=== PATIENT | female | born 1980 | race Caucasian/White ===

== ENCOUNTER → 2017-08-24 | Outpatient (CLI) | payer OTHER | LOC: HPND 07:56 | PROVIDERS: ATTEND Obstetrics & Gynecology | DX: O09.521 Supervision of elderly multigravida, first trimester (principal); O30.041 Twin pregnancy, dichorionic/diamniotic, first trimester; O26.841 Uterine size-date discrepancy, first trimester | CPT/HCPCS: 76801; 76802 ==

== ENCOUNTER → 2017-10-06 | Outpatient (CLI) | payer OTHER | LOC: HPND 08:58 | PROVIDERS: ATTEND Obstetrics & Gynecology | DX: O09.512 Supervision of elderly primigravida, second trimester (principal); O30.042 Twin pregnancy, dichorionic/diamniotic, second trimester | CPT/HCPCS: 76811; 76812; 76817 ==

== ENCOUNTER → 2017-11-03 | Outpatient (CLI) | payer OTHER | LOC: HPND 08:04 | PROVIDERS: ATTEND Obstetrics & Gynecology | DX: O30.042 Twin pregnancy, dichorionic/diamniotic, second trimester (principal) | CPT/HCPCS: 76816; 76817 ==

== ENCOUNTER → 2017-11-15 | Outpatient (CLI) | payer OTHER | LOC: HPND 08:21 | PROVIDERS: ATTEND Obstetrics & Gynecology | DX: O09.522 Supervision of elderly multigravida, second trimester (principal); O30.042 Twin pregnancy, dichorionic/diamniotic, second trimester | CPT/HCPCS: 76815; 76817 ==

== ENCOUNTER → 2017-12-02 | Outpatient (CLI) | payer OTHER | LOC: HPND 07:52 | PROVIDERS: ATTEND Obstetrics & Gynecology | DX: O30.042 Twin pregnancy, dichorionic/diamniotic, second trimester (principal); O09.522 Supervision of elderly multigravida, second trimester | CPT/HCPCS: 76816 ==

== ENCOUNTER → 2017-12-30 | Outpatient (CLI) | payer OTHER | LOC: HPND 07:49 | PROVIDERS: ATTEND Obstetrics & Gynecology | DX: O09.523 Supervision of elderly multigravida, third trimester (principal); O30.043 Twin pregnancy, dichorionic/diamniotic, third trimester | CPT/HCPCS: 76816 ==

== ENCOUNTER → 2018-01-27 | Outpatient (CLI) | payer OTHER | LOC: HPND 08:29 | PROVIDERS: ATTEND Obstetrics & Gynecology | DX: O09.523 Supervision of elderly multigravida, third trimester (principal); O30.043 Twin pregnancy, dichorionic/diamniotic, third trimester; O24.415 Gestational diabetes mellitus in pregnancy, controlled by oral hypoglycemic drugs | CPT/HCPCS: 76816 ==